=== PATIENT | male | born 1960 | race Caucasian/White ===

== ENCOUNTER 2021-04-08 07:12 | Emergency (ER) | payer BC ==
[2021-04-08] MEDS ORDERED: Ibuprofen 600 MG Tab PO ONE (07:16)
[2021-04-08] MEDS ORDERED: traMADol 50 MG Tab PO ONE (07:16)
== END 2021-04-08 09:10 | disposition home or self-care (01) ==
LOC: MW.ED 07:12
DX: S76.101A Unspecified injury of right quadriceps muscle, fascia and tendon, initial encounter (principal); W00.0XXA Fall on same level due to ice and snow, initial encounter
CPT/HCPCS: 73562; 99283; A9270

== ENCOUNTER 2021-04-13 08:49 | Day surgery (SDC) | payer OTHER, BC ==
[~2021-04-13 08:49] MED LIST: Albuterol 0.083% 2.5 MG/3 ML Neb Soln NEB PRN; HYDROmorphone 1 MG/ML Syringe IVPUSH PRN; Lactated Ringers 1,000 ML IV SCH; Metoclopramide 10 MG/2 ML SDV IVPUSH PRN; Morphine 4 MG/ML VIAL IVPUSH PRN; Naloxone 0.4 MG/ML SDV IVPUSH PRN; Ondansetron 4 MG/2 ML SDV IVPUSH PRN; Ropivacaine 0.5% 5 MG/ML 30 ML SDV ONE; ceFAZolin 2 GM in Premix Bag 1 BAG IV SCH
[2021-04-13] MEDS ORDERED: Midazolam 1 MG/ML 2 ML SDV ONE (10:07)
[2021-04-13] MEDS ORDERED: fentaNYL 250 MCG/5 ML SDV ONE (10:36)
[2021-04-13] MEDS ORDERED: Ketamine HCL/NACL, ISO-OSM 50 MG/5 ML Syringe ONE (10:36)
[2021-04-13] MEDS ORDERED: Propofol 200 MG/20 ML SDV ONE (10:36)
[2021-04-13] MEDS ORDERED: fentaNYL 100 MCG/2 ML SDV ONE (12:01)
[2021-04-13] MEDS: fentaNYL 100 MCG/2 ML SDV IVPUSH PRN ×2 (12:54→12:59)
[2021-04-13] MEDS ORDERED: Acetaminophen/HYDROcodone 325-5 MG Tab PO ONE (13:54)
[2021-04-13] MEDS ORDERED: Acetaminophen/HYDROcodone 325-5 MG Tab ONE (13:56)
== END 2021-04-13 14:49 | disposition home or self-care (01) ==
LOC: MW.SDS 08:49
PROVIDERS: ATTEND Orthopaedic Surgery
DX: S76.111A Strain of right quadriceps muscle, fascia and tendon, initial encounter (principal); Z98.890 Other specified postprocedural states; Z90.49 Acquired absence of other specified parts of digestive tract; Z79.82 Long term (current) use of aspirin; X58.XXXA Exposure to other specified factors, initial encounter
CPT/HCPCS: 27385; A9270; J0131; J2250; J2704; J2795; J3010; J7120; 01320; 64450; 76942

== ENCOUNTER 2023-03-20 07:45 | Day surgery (SDC) | payer BC, OTHER ==
[2023-03-20] MEDS ORDERED: fentaNYL 100 MCG/2 ML SDV ONE (08:05)
[2023-03-20] MEDS ORDERED: Propofol 200 MG/20 ML SDV ONE ×2 (08:05→08:06)
[2023-03-20] MEDS ORDERED: Midazolam 1 MG/ML 2 ML SDV ONE (08:05)
[2023-03-20] MEDS: Lactated Ringers 1,000 ML IV SCH (08:13)
== END 2023-03-20 09:53 | disposition home or self-care (01) ==
LOC: MW.SDS 07:45
PROVIDERS: ATTEND Surgery
DX: Z12.11 Encounter for screening for malignant neoplasm of colon (principal); D12.3 Benign neoplasm of transverse colon; L57.0 Actinic keratosis; Z79.899 Other long term (current) drug therapy
CPT/HCPCS: 45380; J2250; J2704; J3010; J7120; 00811